=== PATIENT | male | born 1975 | race Two or more races ===

== ENCOUNTER 2019-10-18 09:51 | Emergency (ER) | payer MEDICAID ==
[2019-10-18] MEDS ORDERED: Sodium Chloride 0.9% 10 ML Syringe FLUSH PRN (10:16)
--- NOTE | 2019-10-18 11:27 | EDM.PDOC ---
ED HPI GENERAL MEDICAL PROBLEM - General Chief Complaint: Chest Pain Stated Complaint: TROUBLE BREATHING Time Seen by Provider: 10/18/19 10:20 Source of Information: Reports: Patient History Limitations: Reports: No Limitations - History of Present Illness INITIAL COMMENTS - FREE TEXT/NARRATIVE: Patient presented to the ED because of 3-year history of chest pain and dyspnea. The chest pain is pleuritic type,3/10 and worse with movements. He also c/o dyspnea which is worse with physical activity,denies any cough,edema or weight gain. He has a history of Hep C and was lost for follow up because he doesn't have any medical provider. Left Chest Pain Score (Numeric/FACES): 5 - Related Data Allergies Allergy/AdvReac Type Severity Reaction Status Date / Time No Known Allergies Allergy Verified 10/18/19 10:00 Home Meds: Home Meds NK [No Known Home Meds] 10/18/19 [History] Past Medical History - Past Health History Medical/Surgical History: Denies Medical/Surgical History Gastrointestinal History: Reports: Cirrhosis Psychiatric History: Reports: Addiction Social & Family History - Tobacco Use Smoking Status *Q: Current Every Day Smoker Years of Tobacco use: 3 Packs/Tins Daily: 0.5 - Recreational Drug Use Drug Use in Last 12 Months: No ED ROS GENERAL - Review of Systems Review Of Systems: See Below Constitutional: Reports: No Symptoms HEENT: Reports: No Symptoms Respiratory: Reports: Shortness of Breath, Pleuritic Chest Pain. Denies: Wheezing Cardiovascular: Reports: No Symptoms, Chest Pain GI/Abdominal: Reports: No Symptoms. Denies: Anorexia, Black Stool, Distension : Reports: No Symptoms Musculoskeletal: Reports: No Symptoms Skin: Reports: No Symptoms Neurological: Reports: No Symptoms Psychiatric: Reports: No Symptoms ED EXAM, GENERAL - Physical Exam Exam: See Below Exam Limited By: No Limitations General Appearance: Alert, WD/WN, No Apparent Distress Ears: Normal External Exam, Normal Canal Nose: Normal Inspection, Normal Mucosa Throat/Mouth: Normal Inspection, Normal Lips, Normal Teeth Head: Atraumatic, Normocephalic Neck: Normal Inspection, Supple, Non-Tender, Full Range of Motion Respiratory/Chest: No Respiratory Distress, Lungs Clear, Normal Breath Sounds, No Accessory Muscle Use, Chest Non-Tender Cardiovascular: Normal Peripheral Pulses, Regular Rate, Rhythm Back Exam: Normal Inspection, Full Range of Motion Extremities: Normal Inspection, Normal Range of Motion Neurological: Alert, Oriented, CN II-XII Intact, Normal Cognition, Normal Gait, Normal Reflexes, No Motor/Sensory Deficits Course - Vital Signs Last Recorded V/S: Last Vital Signs Temp 36.4 C 10/18/19 10:01 Pulse 114 H 10/18/19 10:01 Resp 24 H 10/18/19 10:01 BP 125/82 10/18/19 10:01 Pulse Ox 98 10/18/19 10:01 - Orders/Labs/Meds Orders: Active Orders 24 hr Category Date Time Status EKG Documentation Completion [RC] ASDIRECTED Care 10/18/19 10:16 Active Sodium Chloride 0.9% [Saline Flush] Med 10/18/19 10:16 Active 10 ml FLUSH ASDIRECTED PRN Peripheral IV Insertion Adult [OM.PC] Routine Oth 10/18/19 10:16 Ordered EKG 12 Lead [EK] Routine Ther 10/18/19 10:16 Ordered Medication Orders Sodium Chloride (Saline Flush) 10 ml FLUSH ASDIRECTED PRN PRN Reason: Keep Vein Open Last Admin: 10/18/19 10:13 Dose: 10 ml Labs: Laboratory Tests 10/18/19 10/18/19 10/18/19 Range/Units 10:08 10:08 10:08 WBC 6.5 (4.5-12.0) X10-3/uL Corrected WBC Cancelled RBC 5.00 (4.30-5.75) x10(6)uL Hgb 17.0 (13.5-17.8) g/dL Hct 48.5 (30.0-51.3) % MCV 96.9 H (80-96) fL MCH 33.9 H (27.7-33.6) pg MCHC 35.0 (32.2-35.4) g/dL RDW 13.0 (11.5-15.5) % Plt Count 167 (125-369) X10(3)uL MPV 9.8 (7.4-10.4) fL Neut % (Auto) 66 (46-82) % Lymph % (Auto) 27 (13-37) % [place] % (Auto) 5.4 (4-12) % Eos % (Auto) 1 (1.0-5.0) % Baso % (Auto) 1 (0-2) % Neut # (Auto) 4.3 (1.6-8.3) # Lymph # (Auto) 1.8 (0.6-5.0) # [place]ner # (Auto) 0.4 (0.0-1.3) # Eos # (Auto) 0.1 (0.0-0.8) # Baso # (Auto) 0.0 (0.0-0.2) # Neutrophils % (Manual) Cancelled Band Neutrophils % Cancelled Lymphocytes % (Manual) Cancelled Atypical Lymphs % Cancelled Monocytes % (Manual) Cancelled Eosinophils % (Manual) Cancelled Basophils % (Manual) Cancelled Metamyelocytes % Cancelled Myelocytes % Cancelled Promyelocytes % Cancelled Blast Cells % Cancelled Nucleated RBCs Cancelled Differential Comment Cancelled Hypersegmented Neuts Cancelled Smudge Cells Cancelled Toxic Granulation Cancelled Dohle Bodies Cancelled Steff Rods Cancelled WBC Morphology Comment Cancelled Platelet Estimate Cancelled Clumped Platelets Cancelled Giant Platelets Cancelled Plt Morphology Comment Cancelled Polychromasia Cancelled Hypochromasia Cancelled Poikilocytosis Cancelled Basophilic Stippling Cancelled Anisocytosis Cancelled Microcytosis Cancelled Macrocytosis Cancelled Spherocytes Cancelled Pappenheimer Bodies Cancelled Siderocytes Cancelled Sickle Cells Cancelled Target Cells Cancelled Tear Drop Cells Cancelled Ovalocytes Cancelled Stomatocytes Cancelled Helmet Cells Cancelled [place] Bodies Cancelled [place] Rings Cancelled Son Cells Cancelled Elliptocytes Cancelled Acanthocytes (Spur) Cancelled Rouleaux Cancelled Schistocytes Cancelled PT 10.4 (8.7-11.1) INR 1.07 (0.89-1.13) Sodium 138 (135-145) mmol/L Potassium 3.3 L (3.5-5.3) mmol/L Chloride 99 L (100-110) mmol/L Carbon Dioxide 27 (21-32) mmol/L BUN 8 (7-18) mg/dL Creatinine 0.9 (0.70-1.30) mg/dL Est Cr Clr Drug Dosing 106.92 mL/min Estimated GFR (MDRD) > 60 (>60) BUN/Creatinine Ratio 8.9 L (9-20) Glucose 169 H (80-116) mg/dL Calcium 9.5 (8.6-10.2) mg/dL Total Bilirubin 1.5 H (0.1-1.3) mg/dL AST 100 H (5-25) IU/L ALT 112 H (12-36) U/L Alkaline Phosphatase 108 (56-112) IU/L Troponin I (<0.017-0.056) ng/mL NT-Pro-B Natriuret Pep (<=125) pg/mL Total Protein 8.3 H (6.0-8.0) g/dL Albumin 3.8 (3.5-5.2) g/dL Globulin 4.5 g/dL Albumin/Globulin Ratio 0.8 10/18/19 Range/Units 10:08 WBC (4.5-12.0) X10-3/uL Corrected WBC RBC (4.30-5.75) x10(6)uL Hgb (13.5-17.8) g/dL Hct (30.0-51.3) % MCV (80-96) fL MCH (27.7-33.6) pg MCHC (32.2-35.4) g/dL RDW (11.5-15.5) % Plt Count (125-369) X10(3)uL MPV (7.4-10.4) fL Neut % (Auto) (46-82) % Lymph % (Auto) (13-37) % [place] % (Auto) (4-12) % Eos % (Auto) (1.0-5.0) % Baso % (Auto) (0-2) % Neut # (Auto) (1.6-8.3) # Lymph # (Auto) (0.6-5.0) # [place]ner # (Auto) (0.0-1.3) # Eos # (Auto) (0.0-0.8) # Baso # (Auto) (0.0-0.2) # Neutrophils % (Manual) Band Neutrophils % Lymphocytes % (Manual) Atypical Lymphs % Monocytes % (Manual) Eosinophils % (Manual) Basophils % (Manual) Metamyelocytes % Myelocytes % Promyelocytes % Blast Cells % Nucleated RBCs Differential Comment Hypersegmented Neuts Smudge Cells Toxic Granulation Dohle Bodies Steff Rods WBC Morphology Comment Platelet Estimate Clumped Platelets Giant Platelets Plt Morphology Comment Polychromasia Hypochromasia Poikilocytosis Basophilic Stippling Anisocytosis Microcytosis Macrocytosis Spherocytes Pappenheimer Bodies Siderocytes Sickle Cells Target Cells Tear Drop Cells Ovalocytes Stomatocytes Helmet Cells [place] Bodies [place] Rings Son Cells Elliptocytes Acanthocytes (Spur) Rouleaux Schistocytes PT (8.7-11.1) INR (0.89-1.13) Sodium (135-145) mmol/L Potassium (3.5-5.3) mmol/L Chloride (100-110) mmol/L Carbon Dioxide (21-32) mmol/L BUN (7-18) mg/dL Creatinine (0.70-1.30) mg/dL Est Cr Clr Drug Dosing mL/min Estimated GFR (MDRD) (>60) BUN/Creatinine Ratio (9-20) Glucose (80-116) mg/dL Calcium (8.6-10.2) mg/dL Total Bilirubin (0.1-1.3) mg/dL AST (5-25) IU/L ALT (12-36) U/L Alkaline Phosphatase (56-112) IU/L Troponin I < 0.017 L (<0.017-0.056) ng/mL NT-Pro-B Natriuret Pep 14 (<=125) pg/mL Total Protein (6.0-8.0) g/dL Albumin (3.5-5.2) g/dL Globulin g/dL Albumin/Globulin Ratio Meds: Medications Generic Name Dose Route Start Last Admin Trade Name Freq PRN Reason Stop Dose Admin Sodium Chloride 10 ml 10/18/19 10:16 10/18/19 10:13 Saline Flush FLUSH 10 ml ASDIRECTED PRN Administration Keep Vein Open Departure - Departure Time of Disposition: 11:25 Disposition: Home, Self-Care 01 Condition: Good Clinical Impression: Atypical chest pain Instructions: Nonspecific Chest Pain, [id number] Referrals: PCP,None [Primary Care Provider] - Forms: ED Department Discharge Additional Instructions: Please read discharge instructions on atypical chest pain follow up with your doctor so your shortness of breath will be evaluated further Sepsis Event Note - Evaluation Sepsis Screening Result: No Definite Risk - Focused Exam Vital Signs: Vital Signs Temp Pulse Resp BP Pulse Ox 10/18/19 10:01 36.4 C 114 H 24 H 125/82 98 Date Exam was Performed: 10/18/19 Time Exam was Performed: 11:48 - My Orders Last 24 Hours: My Active Orders 10/18/19 10:16 EKG Documentation Completion [RC] ASDIRECTED Sodium Chloride 0.9% [Saline Flush] 10 ml FLUSH ASDIRECTED PRN Peripheral IV Insertion Adult [OM.PC] Routine EKG 12 Lead [EK] Routine - Assessment/Plan Last 24 Hours: My Active Orders 10/18/19 10:16 EKG Documentation Completion [RC] ASDIRECTED Sodium Chloride 0.9% [Saline Flush] 10 ml FLUSH ASDIRECTED PRN Peripheral IV Insertion Adult [OM.PC] Routine EKG 12 Lead [EK] Routine
--- NOTE | 2019-10-18 11:37 | CR ---
INDICATION: Dyspnea, left-sided pain. CHEST ONE VIEW AP upright portable view of the chest 10/18/2019 was compared with 05/01/2014 and revealed the heart to remain normal in size and shape. Overlying EKG leads are noted. An active infiltrate or effusion was not identified. No free air is noted under the hemidiaphragm leaves. IMPRESSION: No acute process-no definite active disease. MTDD
== END 2019-10-18 11:47 | disposition home or self-care (01) ==
LOC: FB.ED 09:51
DX: R07.89 Other chest pain (principal); R06.02 Shortness of breath; F17.210 Nicotine dependence, cigarettes, uncomplicated
CPT/HCPCS: 36415; 71045; 80053; 83880; 84484; 85025; 85610; 93005; 99285-25

== ENCOUNTER 2019-11-12 11:55 | Emergency (ER) | payer MEDICAID ==
--- NOTE | 2019-11-12 12:30 | EDM.PDOC ---
ED HPI GENERAL MEDICAL PROBLEM - General Stated Complaint: chest pain Time Seen by Provider: 11/12/19 12:10 Source of Information: Reports: Patient History Limitations: Reports: No Limitations - History of Present Illness INITIAL COMMENTS - FREE TEXT/NARRATIVE: pt c/o left sided chest burning sensation since last night , pain non radiating , feels little SOB with this denies any epigastric pain , fever, chills, cough, or any other associated sx or concerns.report Hx of liver cirrhosis , alcoholism , and tobacco abuse. Left Chest Pain Score (Numeric/FACES): 8 - Related Data Allergies Allergy/AdvReac Type Severity Reaction Status Date / Time No Known Allergies Allergy Verified 11/12/19 12:32 Home Meds: Home Meds NK [No Known Home Meds] 10/18/19 [History] Past Medical History - Past Health History Medical/Surgical History: Denies Medical/Surgical History Gastrointestinal History: Reports: Cirrhosis Psychiatric History: Reports: Addiction ED ROS GENERAL - Review of Systems Review Of Systems: See Below Constitutional: Reports: No Symptoms Respiratory: Reports: Shortness of Breath Cardiovascular: Reports: Chest Pain. Denies: Palpitations GI/Abdominal: Reports: No Symptoms : Reports: No Symptoms Musculoskeletal: Reports: No Symptoms Skin: Reports: No Symptoms Neurological: Reports: No Symptoms ED EXAM, GENERAL - Physical Exam Exam: See Below Exam Limited By: No Limitations General Appearance: Alert, No Apparent Distress Nose: Normal Inspection Throat/Mouth: Normal Inspection, Normal Lips Head: Atraumatic, Normocephalic Neck: Normal Inspection, Supple, Non-Tender Respiratory/Chest: No Respiratory Distress, Lungs Clear Cardiovascular: Normal Peripheral Pulses, Regular Rate, Rhythm GI/Abdominal: Normal Bowel Sounds, Soft, Non-Tender Extremities: Normal Inspection, Normal Range of Motion Neurological: Alert, Oriented, CN II-XII Intact Psychiatric: Normal Affect Skin Exam: Warm Course - Vital Signs Text/Narrative:: EKG shows no acute changes, , CXR same, trop is neg, pt symptoms are recurrent and stable for out patient farther evaluation, pt sx appear to be GI / anxiety related at this time, pt was given gi cocktail also metoprolol 50 for elevated BP, SBP now is at 160s. pt has long Hx of alcoholism and hx of liver cirrhosis . rx was prescribed for metoprolol 50 twice daily, pt was advised to use over the counter Prilosec and avoid alcohol use. pt to follow with primary in 2 days for re-check and to be scheduled for a stress test. Dx.. HTN. alcoholism. reflex disease. chest pain. Last Recorded V/S: Last Vital Signs Temp 36.8 C 11/12/19 11:55 Pulse 131 H 11/12/19 11:55 Resp 18 11/12/19 11:55 BP 172/113 H 11/12/19 11:55 Pulse Ox 99 11/12/19 11:55 - Orders/Labs/Meds Orders: Active Orders 24 hr Category Date Time Status EKG Documentation Completion [RC] ASDIRECTED Care 11/12/19 11:55 Active Chest 1V Frontal [CR] Stat Exams 11/12/19 12:30 Taken EKG 12 Lead [EK] Routine Ther 11/12/19 11:55 Ordered Labs: Laboratory Tests 11/12/19 11/12/19 11/12/19 Range/Units 12:40 12:40 12:40 WBC 6.9 (4.5-12.0) X10-3/uL RBC 5.44 (4.30-5.75) x10(6)uL Hgb 17.9 H (13.5-17.8) g/dL Hct 53.2 H (30.0-51.3) % MCV 97.7 H (80-96) fL MCH 33.0 (27.7-33.6) pg MCHC 33.7 (32.2-35.4) g/dL RDW 13.2 (11.5-15.5) % Plt Count 203 (125-369) X10(3)uL MPV 8.2 (7.4-10.4) fL Neut % (Auto) 69.7 (46-82) % Lymph % (Auto) 23.5 (13-37) % [place] % (Auto) 5.6 (4-12) % Eos % (Auto) 0 L (1.0-5.0) % Baso % (Auto) 1 (0-2) % Neut # (Auto) 4.8 (1.6-8.3) # Lymph # (Auto) 1.6 (0.6-5.0) # [place] # (Auto) 0.4 (0.0-1.3) # Eos # (Auto) 0.0 (0.0-0.8) # Baso # (Auto) 0.1 (0.0-0.2) # Sodium 141 (135-145) mmol/L Potassium 3.7 (3.5-5.3) mmol/L Chloride 100 (100-110) mmol/L Carbon Dioxide 28 (21-32) mmol/L BUN 5 L (7-18) mg/dL Creatinine 0.9 (0.70-1.30) mg/dL Est Cr Clr Drug Dosing 105.83 mL/min Estimated GFR (MDRD) > 60 (>60) BUN/Creatinine Ratio 5.6 L (9-20) Glucose 107 (80-116) mg/dL Calcium 11.5 H D (8.6-10.2) mg/dL Total Bilirubin 1.5 H (0.1-1.3) mg/dL AST 49 H D (5-25) IU/L ALT 51 H D (12-36) U/L Alkaline Phosphatase 103 (56-112) IU/L Troponin I < 0.017 L (<0.017-0.056) ng/mL Total Protein 8.9 H (6.0-8.0) g/dL Albumin 4.3 (3.5-5.2) g/dL Globulin 4.6 g/dL Albumin/Globulin Ratio 0.9 Ethyl Alcohol < 0.03 (<0.03) % Meds: Medications Discontinued Medications Generic Name Dose Route Start Last Admin Trade Name Freq PRN Reason Stop Dose Admin Al Hydroxide/Mg Hydroxide 15 0 ml 11/12/19 14:23 ml/ Lidocaine HCl 15 ml PO 11/12/19 14:24 ONETIME ONE Metoprolol Succinate 50 mg 11/12/19 13:27 Toprol Xl PO 11/12/19 13:28 ONETIME ONE Departure - Departure Time of Disposition: 14:29 Disposition: Home, Self-Care 01 Clinical Impression: Chest pain - Discharge Information Sepsis Event Note - Focused Exam Vital Signs: Vital Signs Temp Pulse Resp BP Pulse Ox 11/12/19 11:55 36.8 C 131 H 18 172/113 H 99 Date Exam was Performed: 11/12/19 Time Exam was Performed: 14:24 - My Orders Last 24 Hours: My Active Orders 11/12/19 11:55 EKG Documentation Completion [RC] ASDIRECTED EKG 12 Lead [EK] Routine 11/12/19 12:30 Chest 1V Frontal [CR] Stat - Assessment/Plan Last 24 Hours: My Active Orders 11/12/19 11:55 EKG Documentation Completion [RC] ASDIRECTED EKG 12 Lead [EK] Routine 11/12/19 12:30 Chest 1V Frontal [CR] Stat
[2019-11-12] MEDS ORDERED: Metoprolol Succinate 50 MG Tab.ER PO ONE ×2 (13:27→14:38)
[2019-11-12] MEDS ORDERED: Alum Hydroxide/Mag Hydroxide 15 ML, Lidocaine 2% 15 ML PO ONE ×2 (14:23)
[2019-11-12] MEDS ORDERED: Labetalol 20 MG/4 ML Syringe IVPUSH ONE ×2 (14:38→16:06)
[2019-11-12] MEDS ORDERED: Labetalol 100 MG/20 ML MDV IVPUSH ONE ×3 (15:15→16:30)
[2019-11-12] MEDS ORDERED: cloNIDine 0.1 MG Tab PO ONE (16:53)
[2019-11-12] MEDS ORDERED: Calcium Carbonate 500 MG Tab.Chew PO ONE (18:00)
[2019-11-12] MEDS ORDERED: Pantoprazole 40 MG Vial IVPUSH ONE (18:01)
--- NOTE | 2019-11-18 12:18 | CR ---
INDICATION: Chest pain. CHEST, ONE VIEW: AP upright portable view of the chest was obtained with relatively poor inspiration 11/12/19 and compared with 10/18/19 and 05/01/14. The heart appears somewhat enlarged emphasized by poor inspiration. Overlying EKG leads are noted. An active infiltrate or effusion was not identified. IMPRESSION: No acute process. MTDD
== END 2019-11-12 19:50 | disposition home or self-care (01) ==
LOC: FB.ED 11:55
DX: R07.9 Chest pain, unspecified (principal)
CPT/HCPCS: 36415; 71045; 80053; 80320; 84484; 85025; 93005; 96374; 96375; 96376; 99285; A9270; C9113; J3490; G0480

== ENCOUNTER 2020-10-18 00:09 | Emergency (ER) | payer MEDICAID ==
--- NOTE | 2020-10-18 00:37 | EDM.PDOC ---
ED HPI GENERAL MEDICAL PROBLEM - General Stated Complaint: COVID SYMPTOMS Time Seen by Provider: 10/18/20 00:35 Source of Information: Reports: Patient History Limitations: Reports: No Limitations - History of Present Illness INITIAL COMMENTS - FREE TEXT/NARRATIVE: [place] complains of SOB x 4 days. He reports left sided chest pain as well,nothing helping. He was brought in by law enforcement for medical clearance. He zhou s ah/o atypical chest pain,and liver cirrhosis. Chest Pain Score (Numeric/FACES): 4 - Related Data Allergies Allergy/AdvReac Type Severity Reaction Status Date / Time No Known Allergies Allergy Verified 11/12/19 12:32 Home Meds: Home Meds Metoprolol Succinate 50 mg PO DAILY #30 tab.er.24h 11/12/19 [Rx] Past Medical History - Past Health History Medical/Surgical History: Denies Medical/Surgical History Gastrointestinal History: Reports: Cirrhosis Psychiatric History: Reports: Addiction Social & Family History - Family History Family Medical History: No Pertinent Family History - Caffeine Use Caffeine Use: Reports: Coffee ED ROS GENERAL - Review of Systems Review Of Systems: Comprehensive ROS is negative, except as noted in HPI. Constitutional: Reports: No Symptoms HEENT: Reports: No Symptoms Respiratory: Reports: No Symptoms ED EXAM, GENERAL - Physical Exam Exam: See Below Exam Limited By: No Limitations General Appearance: Alert, Anxious Ear Exam: Bilateral Ear: Auricle Normal, Canal Normal, TM normal Nose: Normal Inspection Throat/Mouth: Normal Inspection Head: Atraumatic Respiratory/Chest: No Respiratory Distress Cardiovascular: Normal Peripheral Pulses GI/Abdominal: Normal Bowel Sounds, Soft Neurological: Alert, Oriented, CN II-XII Intact Psychiatric: Normal Affect Skin Exam: Warm #1 Interpretation Rhythm: NSR Course - Vital Signs Last Recorded V/S: Last Vital Signs Temp 97.4 F 10/18/20 00:44 Pulse 93 10/18/20 00:44 Resp 18 10/18/20 00:44 BP 126/75 10/18/20 00:44 Pulse Ox 99 10/18/20 00:44 - Orders/Labs/Meds Orders: Active Orders 24 hr Category Date Time Status Chest 1V Frontal [CR] Stat Exams 10/18/20 01:08 Taken EKG 12 Lead [EK] Routine Ther 10/18/20 00:34 Ordered Labs: Laboratory Tests 12/10/18/20 10/18/20 Range/Units 00:15 00:42 00:42 WBC 9.1 (3.2-10.1) x10-3/uL RBC 5.33 (3.90-5.90) x10(6)uL Hgb 17.1 (12.9-17.7) g/dL Hct 51.7 H (38.3-50.1) % MCV 96.9 (80.8-98.7) fL MCH 32.1 (27.0-33.3) pg MCHC 33.2 (28.7-35.3) g/dL RDW 14.9 (12.4-15.0) % Plt Count 157 (117-477) x10(3)uL MPV 9.5 (6.7-11.0) fL Neut % (Auto) 58.1 (40.3-71.8) % Lymph % (Auto) 33.6 (15.8-45.3) % [place] % (Auto) 4.9 L (5.5-15.2) % Eos % (Auto) 3.1 (0.1-6.8) % Baso % (Auto) 0.3 (0.3-3.8) % Neut # (Auto) 5.3 (1.7-6.9) x10-3/uL Lymph # (Auto) 3.0 (0.5-4.5) x10-3/uL [place] # (Auto) 0.4 (0.0-1.2) x10-3/uL Eos # (Auto) 0.3 (0.0-0.6) x10-3/uL Baso # (Auto) 0.0 (0.0-0.3) x10-3/uL Sodium 145 (135-145) mmol/L Potassium 3.9 (3.5-5.3) mmol/L Chloride 106 D (100-110) mmol/L Carbon Dioxide 31 (21-32) mmol/L BUN 5 L (7-18) mg/dL Creatinine 1.0 (0.70-1.30) mg/dL Est Cr Clr Drug Dosing TNP Estimated GFR (MDRD) > 60 (>60) BUN/Creatinine Ratio 5.0 L (9-20) Glucose 92 (80-116) mg/dL Calcium 9.0 D (8.6-10.2) mg/dL Total Bilirubin 1.0 (0.1-1.3) mg/dL AST 64 H D (5-25) IU/L ALT 96 H D (12-36) U/L Alkaline Phosphatase 130 H (56-112) IU/L Troponin I (4.0-60.3) pg/mL NT-Pro-B Natriuret Pep (<=125) pg/mL Total Protein 7.6 (6.0-8.0) g/dL Albumin 3.5 (3.5-5.2) g/dL Globulin 4.1 g/dL Albumin/Globulin Ratio 0.9 Urine Opiates Screen (NEGATIVE) Ur Oxycodone Screen (NEGATIVE) Ur Propoxyphene Screen (NEGATIVE) Ur Barbituates Screen (NEGATIVE) Ur Tricyclics Screen (NEGATIVE) Ur Phencyclidine Scrn (NEGATIVE) Ur Amphetamine Screen (NEGATIVE) Urine MDMA Screen (NEGATIVE) U Benzodiazepines Scrn (NEGATIVE) U Cocaine Metab Screen (NEGATIVE) U Marijuana (THC) Screen (NEGATIVE) SARS-CoV-2 RNA (TRAN) Positive H (NEGATIVE) 10/18/20 10/18/20 Range/Units 00:42 01:16 WBC (3.2-10.1) x10-3/uL RBC (3.90-5.90) x10(6)uL Hgb (12.9-17.7) g/dL Hct (38.3-50.1) % MCV (80.8-98.7) fL MCH (27.0-33.3) pg MCHC (28.7-35.3) g/dL RDW (12.4-15.0) % Plt Count (117-477) x10(3)uL MPV (6.7-11.0) fL Neut % (Auto) (40.3-71.8) % Lymph % (Auto) (15.8-45.3) % [place] % (Auto) (5.5-15.2) % Eos % (Auto) (0.1-6.8) % Baso % (Auto) (0.3-3.8) % Neut # (Auto) (1.7-6.9) x10-3/uL Lymph # (Auto) (0.5-4.5) x10-3/uL [place] # (Auto) (0.0-1.2) x10-3/uL Eos # (Auto) (0.0-0.6) x10-3/uL Baso # (Auto) (0.0-0.3) x10-3/uL Sodium (135-145) mmol/L Potassium (3.5-5.3) mmol/L Chloride (100-110) mmol/L Carbon Dioxide (21-32) mmol/L BUN (7-18) mg/dL Creatinine (0.70-1.30) mg/dL Est Cr Clr Drug Dosing Estimated GFR (MDRD) (>60) BUN/Creatinine Ratio (9-20) Glucose (80-116) mg/dL Calcium (8.6-10.2) mg/dL Total Bilirubin (0.1-1.3) mg/dL AST (5-25) IU/L ALT (12-36) U/L Alkaline Phosphatase (56-112) IU/L Troponin I 10.9 (4.0-60.3) pg/mL NT-Pro-B Natriuret Pep 35 (<=125) pg/mL Total Protein (6.0-8.0) g/dL Albumin (3.5-5.2) g/dL Globulin g/dL Albumin/Globulin Ratio Urine Opiates Screen Negative (NEGATIVE) Ur Oxycodone Screen Negative (NEGATIVE) Ur Propoxyphene Screen Negative (NEGATIVE) Ur Barbituates Screen Negative (NEGATIVE) Ur Tricyclics Screen Negative (NEGATIVE) Ur Phencyclidine Scrn Negative (NEGATIVE) Ur Amphetamine Screen Negative (NEGATIVE) Urine MDMA Screen Negative (NEGATIVE) U Benzodiazepines Scrn Negative (NEGATIVE) U Cocaine Metab Screen Negative (NEGATIVE) U Marijuana (THC) Screen Positive H (NEGATIVE) SARS-CoV-2 RNA (TRAN) (NEGATIVE) Departure - Departure Time of Disposition: 06:50 Disposition: Home, Self-Care 01 Condition: Good Clinical Impression: Chest pain - Discharge Information Instructions: COVID-19 Referrals: PCP,None [Primary Care Provider] - Forms: ED Department Discharge Sepsis Event Note (ED) - Focused Exam Vital Signs: Vital Signs Temp Pulse Resp BP Pulse Ox 10/18/20 00:44 97.4 F 93 18 126/75 99 - Problem List & Annotations (1) Chest pain SNOMED Code(s): 13068903 Code(s): R07.9 - CHEST PAIN, UNSPECIFIED Status: Acute (2) COVID-19 SNOMED Code(s): 383766532 Code(s): U07.1 - COVID-19 Status: Acute - Problem List Review Problem List Initiated/Reviewed/Updated: Yes - My Orders Last 24 Hours: My Active Orders 10/18/20 00:34 EKG 12 Lead [EK] Routine 10/18/20 01:08 Chest 1V Frontal [CR] Stat - Assessment/Plan Last 24 Hours: My Active Orders 10/18/20 00:34 EKG 12 Lead [EK] Routine 10/18/20 01:08 Chest 1V Frontal [CR] Stat Plan: He was discharged home. Law enforcement took care of disposition.
--- NOTE | 2020-10-18 10:12 | CR ---
INDICATION: Short of breath, COVID positive previously. CHEST ONE VIEW: AP upright portable view of the chest 10/18/20 was compared with 11/12/19 and 10/18/19. No definite interval change is noted with heart, mediastinum and bony thorax unremarkable. An active infiltrate or effusion was not identified. IMPRESSION: No acute process. MTDD
== END 2020-10-18 01:45 | disposition home or self-care (01) ==
LOC: FB.ED 00:09
DX: U07.1 COVID-19 (principal); Z79.899 Other long term (current) drug therapy
CPT/HCPCS: 36415; 71045; 80053; 80305-QW; 83880; 84484; 85025; 93005; 99285-25; U0002

== ENCOUNTER 2023-11-15 20:36 | Emergency (ER) | payer MEDICAID ==
[2023-11-15 21:13] LABS: BASOPHILS PERCENT AUTO 0.6 % (0.3-3.8); EOSINOPHILS ABSOLUTE AUTO 0.2 x10-3/uL (0.0-0.6); EOSINOPHILS PERCENT AUTO 2.3 % (0.1-6.8); HEMATOCRIT 44.9 % (38.3-50.1); HEMOGLOBIN 15.7 g/dL (12.9-17.7); LYMPHOCYTES ABSOLUTE AUTO 2.7 x10-3/uL (0.5-4.5); LYMPHOCYTES PERCENT AUTO 31.9 % (15.8-45.3); MEAN CORPUSCULAR HEMOGLOBIN 31.9 pg (27.0-33.3); MEAN CORPUSCULAR VOLUME 91.3 fL (80.8-98.7); MEAN PLATELET VOLUME 9.1 fL (6.7-11.0); MONOCYTES ABSOLUTE AUTO 0.5 x10-3/uL (0.0-1.2); MONOCYTES PERCENT AUTO 5.8 % (5.5-15.2); NEUTROPHILS PERCENT AUTO 59.4 % (40.3-71.8); PLATELET COUNT,PLT 202 x10(3)uL (117-477); RED BLOOD CELL COUNT 4.91 x10(6)uL (3.90-5.90); RED CELL DISTRIBUTION WIDTH 12.9 % (12.4-15.0); WHITE BLOOD CELL COUNT,WBC 8.4 x10-3/uL (3.2-10.1)
[2023-11-15] MEDS ORDERED: Ondansetron 4 MG Tab.DIS PO ONE (21:13)
[2023-11-15] MEDS ORDERED: Alum Hydroxide/Mag Hydroxide 15 ML, Lidocaine 2% 15 ML PO ONE ×2 (21:13)
[2023-11-15 21:18] LABS: BLOOD UREA NITROGEN,BUN 13 mg/dL (7-18); BUN/CREATININE RATIO 11.8 (9-20); CALCIUM 9.4 mg/dL (8.6-10.2); CARBON DIOXIDE,CO2 30 mmol/L (21-32); CHLORIDE,CL 99 mmol/L (100-110); CREATININE 1.1 mg/dL (0.70-1.30); ESTIMATED GFR 83 mL/min (>60); GLUCOSE RANDOM 99 mg/dL (80-116); POTASSIUM,K 4.3 mmol/L (3.5-5.3); SODIUM,NA 135 mmol/L (135-145)
[2023-11-15 21:28] LABS: A/G RATIO 1.2; ALANINE AMINOTRANSFERASE,ALT 27 U/L (12-36); ALBUMIN 4.1 g/dL (3.5-5.2); ALKALINE PHOSPHATASE 98 IU/L (56-112); ASPARTATE AMNIOTRANSFERASE,AST 19 IU/L (5-25); BILIRUBIN TOTAL 1.2 mg/dL (0.1-1.3); PROTEIN TOTAL,TP 7.6 g/dL (6.0-8.0)
== END 2023-11-15 22:12 | disposition home or self-care (01) ==
LOC: FB.ED 20:36
DX: R07.9 Chest pain, unspecified (principal)
CPT/HCPCS: 36415; 71045; 80053; 83880; 84484; 85025; 93005; 99285; A9270-GY; Q0162